=== PATIENT | male | born 1980 | race Caucasian/White ===

== ENCOUNTER 2023-12-16 10:07 | Outpatient (AMB) | payer OTHER, SELFPAY ==
[2023-12-16 10:17] VITALS: BP 110/60; PULSE 74; TEMP 36.8; O2SAT 98; BMI 25.4
--- NOTE | 2023-12-16 10:17 | AM.OFFWIN_ITS ---
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 Reports worse since onset over the last 2-3 weeks. 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 Plan .. Orders: Referrals Orthopedics Referral G56.03 - Carpal tunnel syndrome, bilateral upper limbs Patient Instructions: Buy [id number] carpal tunnel wrist splints to be worn at night, follow up with Orthopedics. If a nerve conduction study is needed before the referral can be completed, he will need to follow up with your primary care provider for this. Coding Level of Care Code Est Pt Level 3 (20426) Diagnoses Carpal tunnel syndrome, bilateral G56.03
== END 2023-12-16 10:50 | disposition home or self-care (01) ==
PROVIDERS: PCP Internal Medicine; Visit Provider Nurse Practitioner Family
DX: G56.03 Carpal tunnel syndrome, bilateral upper limbs (principal)
CPT/HCPCS: 99051; 99213

== ENCOUNTER 2024-01-03 08:08 | Outpatient (AMB) | payer OTHER, SELFPAY ==
--- NOTE | 2024-01-03 08:17 | AM.OFFWIN_ITS ---
Intake Vital Signs 01/03/24 08:18 Height 5 ft 10 in Weight 180 lb BMI 25.8 BP 126/84 Blood Pressure Location Lt brachial Position Sitting Pulse 56 Pulse Source Pulse Oximeter Temp 98.3 F Temp Source Oral Pulse Oximetry (%) 98 Oxygen Delivery Method Room Air Intake Visit Reasons: EP Pain on left arm Intake Note: pt c/o LT arm pain. Ongoing. Worsening Patient Tobacco Use Status: Current everyday Tobacco user Allergies No Known Allergies Allergy (Verified 01/03/24 08:18) Medication List - Last Reconciled 01/03/24 by Ramya Calderon MD atorvastatin 40 mg PO DAILY levothyroxine 75 mcg PO DAILY Do you need a note to return to daycare/school/sports/work: No HPI EP Pain on left arm HPI Details Patient is a 43-year-old gentleman who is suffering from carpal tunnel syndrome left hand He has appointment coming up with orthopedic end of this month Patient is having pain , he is taking nonsteroidal anti-inflammatory medication which is not helping 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 He has a splint on that he is wearing at night but not during the day Patient is complaining of feeling numbness and tingling in his fingers He had nerve conduction study that is how it was diagnosed He is requesting assistance with pain On examination he can move his fingers Motor sensory is intact vascular intact Wrist movement is full Plan: I would recommend that he wears splint during the day as well if possible I have sent prednisone 20 mg once a day for 7 days And gabapentin 100 mg to be taken at night Patient was notified that gabapentin we will cause drowsiness so he should only take it when he is sleeping. Follow-up with primary care [facility] Social History Patient Tobacco Use Status: Current everyday Tobacco user Review of Systems Const All systems reviewed & are unremarkable except as noted in HPI and below Physical Exam Vital Signs: Last Vital Signs Temp 98.3 F 01/03/24 08:18 Pulse 56 01/03/24 08:18 BP 126/84 01/03/24 08:18 Pulse Ox 98 01/03/24 08:18 Oxygen Delivery Method Room Air 01/03/24 08:18 BMI result Body Mass Index 25.8 Const General: no acute distress Orientation/consciousness: patient oriented x3 Eyes General: appearance normal, both eyes and all related structures Resp Effort & Inspection: normal respiratory effort and able to speak in complete sentences Neuro General: patient oriented x3 Extrem Other: He has a wrist splint on left hand, fingers are mobile, neuro and vascular exam within normal limit No pain with tapping on the wrist, wrist movement is intact Psych Mental Status: mental status grossly normal Assessment & Plan Assessment & Plan (1) Paresthesias in left hand: Code(s): R20.2 - Paresthesia of skin (2) Pain, joint, hand, left: Code(s): M25.542 - Pain in joints of left hand (3) Carpal tunnel syndrome, left: Code(s): G56.02 - Carpal tunnel syndrome, left upper limb Plan Patient is a 43-year-old gentleman who is suffering from carpal tunnel syndrome left hand He has appointment coming up with orthopedic end of this month Patient is having pain , he is taking nonsteroidal anti-inflammatory medication which is not helping 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 He has a splint on that he is wearing at night but not during the day Patient is complaining of feeling numbness and tingling in his fingers He had nerve conduction study that is how it was diagnosed He is requesting assistance with pain On examination he can move his fingers Motor sensory is intact vascular intact Wrist movement is full Plan: I would recommend that he wears splint during the day as well if possible I have sent prednisone 20 mg once a day for 7 days And gabapentin 100 mg to be taken at night Patient was notified that gabapentin we will cause drowsiness so he should only take it when he is sleeping. Follow-up with primary care Letter provided to be off work today and last night Medications: New gabapentin 100 mg PO BEDTIME 30 caps 0RF prednisone 20 mg PO DAILY 7 tabs 0RF 7 days Coding Level of Care Code Est Pt Level 4 (43687) Diagnoses Paresthesias in left hand R20.2 Pain, joint, hand, left M25.542 Carpal tunnel syndrome, left G56.02
[2024-01-03 08:18] VITALS: BP 126/84; PULSE 56; TEMP 36.8; O2SAT 98; BMI 25.8
== END 2024-01-03 09:05 | disposition home or self-care (01) ==
PROVIDERS: PCP Internal Medicine; Visit Provider Internal Medicine
DX: R20.2 Paresthesia of skin (principal); M25.542 Pain in joints of left hand; G56.02 Carpal tunnel syndrome, left upper limb
CPT/HCPCS: 99214

== ENCOUNTER 2024-01-24 08:51 | Outpatient (AMB) | payer OTHER, SELFPAY ==
--- NOTE | 2024-01-24 09:01 | A.OFFVIS_ITS ---
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 Left worse than right hand. EMG done roughly 20 years ago. He presents today with a brace his partner bought at home. 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 At night his symptoms are worse so he has to wake up and shake his hands to get some relief. He squeezes his wrist and is able to make a loud pop, he does this about every 10 minutes and says this helps blood flow go into his hand and relief his numbness and tingling for a short period time. His numbness and tingling is constant throughout the day in his 3rd, 4th and 5th digits of his B/L hands. Some days he is unable to open the door due to him not having sensation in his hands. He has difficulty with lifting, gripping, and grasping. When he holds objects sometimes he looks at his hands and notices the object is no longer in his hands. Denies recent injury. 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 The patient states that he has been trying to get by with conservative treatment measures since that time, but he feels that his symptoms have progressively worsened to the point where he feels he would like further treatment. The patient reports that he did have a nerve conduction study done approximately 10 years ago, but he can not recall the results. The patient reports that his symptoms are intermittent, but daily, and worse at night. The patient reports that the fingers affected are mainly the middle, ring, and small fingers of bilateral hands, and then the left is worse than the right. The patient reports that he regularly awakens from sleep to numb and painful hands, and he states that he has to ?pop? his wrists to get normal sensation back. Patient reports that he has been using an aupa-gol-[id number] thumb and wrist brace on the left hand daily for help with symptoms, with minimal to no relief. 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 No other acute complaints or concerns at this time. [facility] Social History (Updated 01/24/24 @ 09:13 by HANNA Meier) Alcohol intake: current Alcohol intake frequency: holidays/special occasions only Patient Tobacco Use Status: Current everyday Tobacco user Tobacco use type: Cigarette Substance Use Type: Marijuana Current occupational status: employed Current occupation: [employer] / right hand dominant Review of Systems Const All systems reviewed & are unremarkable except as noted in HPI and below Physical Exam Vital Signs: BMI result Body Mass Index 25.8 Extrem Other: Neuro: Normal sensation to the tips of all digits of bilateral hands at this time No thenar or intrinsic wasting. Good APB muscle firing and good finger cross. Of note, there is noted to be weakness of bilateral small fingers with adduction, and the patient is unable to hold the bilateral small fingers in full adduction when passively placed there. Vascular: Capillary refill brisk. ROM: Patient can make a fist and extend all their digits. Skin: No lacerations or abrasions noted. General: No ecchymosis. No erythema or evidence of infection. Assessment & Plan Assessment & Plan (1) Numbness and tingling in both hands: Code(s): R20.0 - Anesthesia of skin; R20.2 - Paresthesia of skin Category: Medical Plan 1. Bilateral hand numbness and tingling Ongoing for approximately 20 years Symptoms intermittent, but daily, worse at night Patient has no nerve conduction study on file At this time, new nerve conduction study is ordered to assess the health of the nerves of the bilateral upper extremities Patient is amenable to this plan Patient will follow-up after nerve conduction study for results review and discussion of further treatment options at that time. Orders: Orders NE electromyogram (EMG) Today R20.0 - Anesthesia of skin, R20.2 - Paresthesia of skin NE nerve conduction velocity Today R20.0 - Anesthesia of skin, R20.2 - Paresthesia of skin Coding Level of Care Code New Pt Level 3 (45587) Diagnoses Numbness and tingling in both hands R20.0; R20.2
[2024-01-24 09:02] VITALS: BMI 25.8
== END 2024-01-24 09:37 | disposition home or self-care (01) ==
PROVIDERS: PCP Internal Medicine
DX: R20.0 Anesthesia of skin (principal); R20.2 Paresthesia of skin
CPT/HCPCS: 99203

== ENCOUNTER → 2024-01-24 08:51 | Outpatient (BNVA) | payer OTHER, SELFPAY | PROVIDERS: PCP Internal Medicine | DX: R20.0 Anesthesia of skin (principal); R20.2 Paresthesia of skin | CPT/HCPCS: 99202 ==

== ENCOUNTER 2024-02-06 08:45 | Outpatient (AMB) | payer OTHER, SELFPAY ==
[2024-02-06 08:53] VITALS: BP 112/78; PULSE 62; TEMP 36.8; O2SAT 99; BMI 24.8
--- NOTE | 2024-02-06 08:53 | MHC.OFFWIV ---
Intake Vital Signs 02/06/24 08:53 Height 5 ft 10 in Weight 173 lb BMI 24.8 BP 112/78 Blood Pressure Location Lt brachial Position Sitting Pulse 62 Pulse Source Pulse Oximeter Temp 98.2 F Temp Source Oral Pulse Oximetry (%) 99 Oxygen Delivery Method Room Air Intake Visit Reasons: EP stomach Intake Note: pt c/o lower abdominal pain. Hurts worse after eating Patient Tobacco Use Status: Current everyday Tobacco user Allergies No Known Allergies Allergy (Verified 02/06/24 09:03) Do you need a note to return to daycare/school/sports/work: Yes HPI HPI Comments History of Present Illness Details 43 y/o male patient who presents to the walk in clinic with c/o Generalized Abdominal pain since Monday. Reports Pain as Cramping associated with bloating and burping. Denies Diarrhea but reports hard stools, he thinks he might have Constipation. Reports that Foods make the pain worse. Denies fevers but reports chills. Denies nausea or vomiting. Denies any dietary changes, but reports eating out alot. ON LICENSE OF [facility] Social History (Updated 01/24/24 @ 09:13 by HANNA Meier) Alcohol intake: current Alcohol intake frequency: holidays/special occasions only Patient Tobacco Use Status: Current everyday Tobacco user Tobacco use type: Cigarette Substance Use Type: Marijuana Current occupational status: employed Current occupation: [employer] / right hand dominant Review of Systems Const All systems reviewed & are unremarkable except as noted in HPI and below Physical Exam Vital Signs: Last Vital Signs Temp 98.2 F 02/06/24 08:53 Pulse 62 02/06/24 08:53 BP 112/78 02/06/24 08:53 Pulse Ox 99 02/06/24 08:53 Oxygen Delivery Method Room Air 02/06/24 08:53 BMI result Body Mass Index 24.8 Const General: cooperative and no acute distress Orientation/consciousness: patient oriented x3 GI Inspection: Yes normal to inspection Palpation (GI): Soft to palpation, not firm, Tenderness to palpation present (GI) in the epigastrum and in the LLQ, no guarding, not rigid, No hepatosplenomegaly present and Rebound tenderness present Auscultation: Hypoactive bowel sounds present Rectal Exam - Male: Yes deferred Neuro General: patient oriented x3, gait normal and moves all extremities Psych Speech and movement: Normal speech and movement present Assessment & Plan Assessment & Plan (1) Abdominal pain: Code(s): R10.9 - Unspecified abdominal pain Qualifiers: Abdominal location: generalized Qualified Code(s): R10.84 - Generalized abdominal pain Plan: DDX's: Constipation vs Appendicitis vs Gallstone vs GERD Advised to go to ED for further testing (CT Abdomen) and lab work Advised to push fluids Avoid Oily, greasy foods Medications: New metoclopramide HCl (Reglan) 10 mg PO Q6H PRN 30 tabs 0RF nausea and vomiting R10.84 - Generalized abdominal pain famotidine 20 mg PO BID 60 tabs 0RF R10.84 - Generalized abdominal pain Coding Level of Care Code Est Pt Level 3 (67835) Diagnoses Generalized abdominal pain R10.84 Abdominal location: generalized Time Spent (min) 15
== END 2024-02-06 09:36 | disposition home or self-care (01) ==
PROVIDERS: PCP Internal Medicine; Visit Provider Nurse Practitioner Family
DX: R10.84 Generalized abdominal pain (principal)
CPT/HCPCS: 99213

== ENCOUNTER 2024-03-01 10:18 | Outpatient (REF) | payer OTHER, SELFPAY ==
--- NOTE | 2024-03-01 10:21 | EMG_ITS ---
Chief complaint: Chronic hand numbness, worsening. Past EMG 20 years ago supposedly showed mild Carpal Tunnel Syndrome. No surgery yet. Denies neck pain. Reason for referral: Evaluate for Carpal Tunnel Syndrome Referred by: Alfredo AARON Procedure done: Bilateral upper extremities NCS/EMG Precautions and/or limitations: Difficulty tolerating needle EMG The limb temperature was monitored continuously and remained between 32-36 degrees C during the performance of the NCS. Nerve Conduction Studies Anti Sensory Summary Table ?Stim Site NR Onset (ms) Norm Onset (ms) Peak (ms) Norm Peak (ms) O-P Amp (?V) Norm O-P Amp Site1 Site2 Delta-0 (ms) Dist (cm) Jabari (m/s) Norm Jabari (m/s) Left Median Anti Sensory (2nd Digit) Wrist ? 3.4 4.4 <3.6 33.0 >10 Wrist 2nd Digit 3.4 14.0 41 Right Median Anti Sensory (2nd Digit) Wrist NR <3.6 >10 Wrist 2nd Digit 14.0 Right Radial Anti Sensory (Thumb) Forearm ? 1.6 2.3 <3.1 12.8 Forearm Thumb 1.6 0.0 Left Ulnar Anti Sensory (5th Digit) Wrist ? 2.2 3.5 <3.7 15.3 >15.0 Wrist 5th Digit 2.2 14.0 64 Right Ulnar Anti Sensory (5th Digit) Wrist ? 2.2 3.2 <3.7 34.7 >15.0 Wrist 5th Digit 2.2 14.0 64 Motor Summary Table ?Stim Site NR Onset (ms) Norm Onset (ms) O-P Amp (mV) Norm O-P Amp iAmp (mV) Amp (1st) (%) Site1 Site2 Delta-0 (ms) Dist (cm) Jabari (m/s) Norm Jabari (m/s) Left Median Motor (Abd Poll Brev) Wrist ? 5.2 <3.9 11.5 >4.5 14.0 100.0 Elbow Wrist 4.8 23.0 48 >45 Elbow ? 10.0 10.7 13.1 93.0 Right Median Motor (Abd Poll Brev) Wrist ? 7.4 <3.9 9.4 >4.5 11.4 100.0 Elbow Wrist 2.8 21.0 75 >45 Elbow ? 10.2 8.1 10.3 86.2 Left Ulnar Motor (Abd Dig Minimi) Wrist ? 2.9 <3.0 8.4 >5 13.0 100.0 B Elbow Wrist 4.4 22.0 50 >45 B Elbow ? 7.3 7.0 10.3 83.3 A Elbow B Elbow 1.8 10.0 56 >45 A Elbow ? 9.1 8.9 11.8 106.0 Right Ulnar Motor (Abd Dig Minimi) Wrist ? 3.0 <3.0 9.9 >5 12.8 100.0 B Elbow Wrist 4.1 22.0 54 >45 B Elbow ? 7.1 7.8 9.9 78.8 A Elbow B Elbow 1.8 10.0 56 >45 A Elbow ? 8.9 6.2 8.2 62.6 EMG ?Side Muscle Nerve Root Ins Act Fibs Psw Amp Dur Poly Recrt Int Pat Comment Right 1stDorInt Ulnar C8-T1 Nml Nml Nml Nml Nml 0 Nml Complete Right FlexCarRad Median C6-7 Nml Nml Nml Nml Nml 0 Nml Complete Right Biceps Musculocut C5-6 Nml Nml Nml Nml Nml 0 Nml Complete Right Triceps Radial C6-7-8 Nml Nml Nml Nml Nml 0 Nml Complete Right Deltoid Axillary C5-6 Nml Nml Nml Nml Nml 0 Nml Complete FINDINGS: Bilateral median motor nerves showed prolonged distal latency, normal amplitude and normal conduction velocity. Right median sensory nerve no response. Left median sensory nerve showed prolonged peak latency. All other nerves tested were within normal. Evidence of possible right Scooby Jeyson anastomosis was seen, which is a normal anatomic variant. Concentric needle EMG was performed in selected muscles of the right upper extremity. Study did not reveal signs of electric abnormalities as shown in the table above. IMPRESSION: 1. This is an abnormal study. 2. There is electrodiagnostic evidence for bilateral moderate-severe median neuropathy at the wrist, consistent with carpal tunnel syndrome. 3. There is no electrodiagnostic evidence for ulnar neuropathy, brachial plexopathy, or cervical radiculopathy. 4. Evidence of possible right Scooby Jeyson anastomosis was seen, which is a normal anatomic variant. Thank you for your kind referral. Steph Ardon MD, DENNISE Board Certified, [place] Board of Physical [employer] and Rehabilitation (ABPMR) Board Certified, [place] Board of Electrodiagnostic Medicine (ABEM) CODIN [phone] [facility]ITALCarl[facility]
== END 2024-03-01 10:19 | disposition home or self-care (01) ==
LOC: HO.NEURO 10:18
PROVIDERS: PCP Internal Medicine
DX: R20.0 Anesthesia of skin (principal); R20.2 Paresthesia of skin
CPT/HCPCS: 95886; 95911

== ENCOUNTER → 2024-03-01 10:21 | Outpatient (BNV) | payer OTHER, SELFPAY | PROVIDERS: PCP Internal Medicine; Visit Provider Physical Medicine & Rehabilitation | DX: G56.03 Carpal tunnel syndrome, bilateral upper limbs (principal) | CPT/HCPCS: 95886; 95911 ==

== ENCOUNTER 2024-03-15 16:14 | Outpatient (AMB) | payer OTHER, SELFPAY ==
[2024-03-15 16:16] VITALS: BP 110/70; PULSE 83; TEMP 36.5; O2SAT 97; BMI 24.7
--- NOTE | 2024-03-15 16:16 | AM.OFFWIN_ITS ---
Intake Vital Signs 03/15/24 16:16 Height 5 ft 10 in Weight 172 lb BMI 24.7 BP 110/70 Blood Pressure Location Lt brachial Position Sitting Pulse 83 Pulse Source Pulse Oximeter Temp 97.7 F Temp Source Oral Pulse Oximetry (%) 97 Oxygen Delivery Method Room Air Intake Visit Reasons: EP-lt ankle pain Intake Note: Pt is here today c/o Lt ankle pain: No injury noted started this morning Patient Tobacco Use Status: Current everyday Tobacco user Allergies No Known Allergies Allergy (Verified 03/15/24 16:18) HPI HPI Comments History of Present Illness Details Patient is a 43-year-old male who is complaining of left ankle pain since this morning. 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 He denies any injury to his left ankle. He states it hurts right up the back of the ankle it like a sharp shooting pain that radiates a little bit to each side but mostly just go straight up the back of his calf. He did not tried taking any medication or use ice before coming into the clinic. [facility] Social History (Updated 01/24/24 @ 09:13 by HANNA Meier) Alcohol intake: current Alcohol intake frequency: holidays/special occasions only Patient Tobacco Use Status: Current everyday Tobacco user Tobacco use type: Cigarette Substance Use Type: Marijuana Current occupational status: employed Current occupation: [employer] / right hand dominant Review of Systems Const All systems reviewed & are unremarkable except as noted in HPI and below Physical Exam Vital Signs: BMI result Body Mass Index 24.7 Const General: cooperative, healthy appearing, comfortable, no acute distress and well developed Orientation/consciousness: patient oriented x3 Limitations: no limitations HEENT Head: Yes normal to inspection Neck Neck: Yes normal visual inspection and Yes supple Neuro General: patient oriented x3 Extrem Left lower extremity: ankle ( ) Details: normal to inspection, tenderness Location: of the achilles tendon and normal ROM; no swelling, no warmth, no abrasions, no lacerations, no ecchymosis and achilles tendon exam normal and foot Details: normal capillary refill, normal to inspection, toes with normal ROM, no edema and vascular exam Details: normal capillary refill; no tenderness, no unusual warmth, no edema, no abrasions, no lacerations and no ecchymosis Assessment & Plan Assessment & Plan (1) Achilles tendinitis, left leg: Code(s): M76.62 - Achilles tendinitis, left leg Plan: Physical exam relatively unremarkable, just some tenderness along the Achilles but negative Khan's test. Recommended resting, using ice and Aleve ATC for the next few days, advised there are taping techniques you can use a few go to a physical therapist. If no improvement in his pain, he should follow up with his PCP. Plan See above Coding Level of Care Code New Pt Level 3 (45055) Diagnoses Achilles tendinitis, left leg M76.62
== END 2024-03-15 16:29 | disposition home or self-care (01) ==
PROVIDERS: PCP Internal Medicine; Visit Provider Physician Assistant
DX: M76.62 Achilles tendinitis, left leg (principal)

== ENCOUNTER → 2024-03-15 16:14 | Outpatient (BNVA) | payer OTHER, SELFPAY | PROVIDERS: PCP Internal Medicine; Visit Provider Physician Assistant | DX: M76.62 Achilles tendinitis, left leg (principal) | CPT/HCPCS: 99202 ==

== ENCOUNTER 2024-03-25 10:22 | Outpatient (AMB) | payer OTHER, SELFPAY ==
--- NOTE | 2024-03-25 10:31 | A.OFFVIS_ITS ---
Vital Signs 03/25/24 10:36 Height 5 ft 10 in Weight 170 lb BMI 24.4 Handedness Right Intake Visit Reasons: OV- B/L hands EMG review Intake Note: Nhan is a 43 year old right hand dominant male who presents today for an EMG review of his bilateral hands s/p EMG conducted on 03/01/24. The impression reads there is electrodiagnostic evidence for bilateral moderate-severe median neuropathy at the wrist, consistent with carpal tunnel syndrome and evidence of possible right Scooby Jeyson anastomosis was seen, which is a normal anatomic variant. He is open to discussing surgery, left greater than right. Accompanied by: Significant Other Allergies No Known Allergies Allergy (Verified 03/25/24 10:36) HPI HPI OV- B/L hands EMG review: Details: Patient is a 43-year-old male who presents for bilateral hand EMG review. The patient reports that he would like to explore any potential surgical intervention indicated based upon his EMG. Patient reports that his symptoms are intermittent, daily, and worse at night, and that they have worsened since previous visit. Patient states he would like to start with the left side 1st if any surgery is indicated. No other acute complaints or concerns at this time. [facility] Social History Alcohol intake: current Alcohol intake frequency: holidays/special occasions only Patient Tobacco Use Status: Current everyday Tobacco user Tobacco use type: Cigarette Substance Use Type: Marijuana Current occupational status: employed Current occupation: [employer] / right hand dominant Physical Exam Vital Signs: BMI result Body Mass Index 24.4 Extrem Other: Neuro: Normal sensation to the tips of all digits of bilateral hands at this time No thenar or intrinsic wasting. Good APB muscle firing and good finger cross. Of note, there is noted to be weakness of bilateral small fingers with adduction, and the patient is unable to hold the bilateral small fingers in full adduction when passively placed there. Vascular: Capillary refill brisk. ROM: Patient can make a fist and extend all their digits. Skin: No lacerations or abrasions noted. General: No ecchymosis. No erythema or evidence of infection. Results Reviewed Results Reviewed: IMPRESSION: 1. This is an abnormal study. 2. There is electrodiagnostic evidence for bilateral moderate-severe median neuropathy at the wrist, consistent with carpal tunnel syndrome. 3. There is no electrodiagnostic evidence for ulnar neuropathy, brachial plexopathy, or cervical radiculopathy. 4. Evidence of possible right Scooby Jeyson anastomosis was seen, which is a normal anatomic variant. Thank you for your kind referral. Steph Ardon MD, DENNISE 03/01/2024 Assessment & Plan Assessment & Plan (1) Carpal tunnel syndrome, bilateral: Code(s): G56.03 - Carpal tunnel syndrome, bilateral upper limbs Category: Medical Plan 1. Carpal tunnel syndrome, left Symptoms intermittent, daily, worse at night I educated the patient about the condition. I discussed both operative and nonoperative treatment options. The patient would like to proceed with surgery. Patient initially expresses significant apprehension with regards to having the procedure done under local anesthesia, but after education he states he would be better with this. The risks and benefits of operative treatment were discussed with the patient and the patient wishes to proceed with surgery. These risks include, but are not limited to, risk of damage to blood vessels, nerves, tendons, infection, recurrence, incomplete relief of preoperative symptoms, persistent pain, possible need for further surgery, and the risks associated with regional blocks and/or anesthesia. Plan is to take the patient to the operating room at some point in the next few weeks for the following procedures: 1. Left carpal tunnel release under local anesthesia All of the preoperative paperwork including the consent was discussed today. All of the patient's questions were answered in the clinic today. The patient understands that they will be in contact with our instructor adjunct surgical technician to discuss scheduling their procedure. Patient denies diabetes, blood thinners, asthma, heart issues, lung issues, kidney issues, or current smoking. 2. Carpal tunnel syndrome, right Symptoms intermittent, but daily, worse at night Patient would like to proceed with operative intervention of the left prior to any intervention on the right Patient is informed that if he is recovering well at his postoperative visit his left side, we can sign in the right upper surgery if he desires to do so Patient understands this in his amenable to this plan Of note, the patient states that he needs to schedule surgery in August, as he will not be eligible for FMLA at his new job until that time, so he will need a preop visit that we will be more than 3 months from now that he will have surgery Coding Level of Care Code Est Pt Level 4 (11059) Diagnoses Carpal tunnel syndrome, bilateral G56.03
[2024-03-25 10:36] VITALS: BMI 24.4
== END 2024-03-25 11:16 | disposition home or self-care (01) ==
PROVIDERS: PCP Internal Medicine
DX: G56.03 Carpal tunnel syndrome, bilateral upper limbs (principal)
CPT/HCPCS: 99214

== ENCOUNTER → 2024-03-25 10:22 | Outpatient (BNVA) | payer OTHER, SELFPAY | PROVIDERS: PCP Internal Medicine | DX: G56.03 Carpal tunnel syndrome, bilateral upper limbs (principal) | CPT/HCPCS: 99212 ==

== ENCOUNTER 2024-06-13 08:35 | Outpatient (AMB) | payer OTHER, SELFPAY ==
--- NOTE | 2024-06-13 08:43 | MHC.OFFWIV ---
Intake Vital Signs 06/13/24 08:45 Height 5 ft 10 in Weight 164 lb BMI 23.5 BP 112/74 Blood Pressure Location Lt brachial Position Sitting Pulse 94 Pulse Source Pulse Oximeter Temp 98.4 F Temp Source Oral Pulse Oximetry (%) 97 Oxygen Delivery Method Room Air Intake Visit Reasons: EP stomach pain, nauseous,headaches Intake Note: Patient here for stomach pain, nausea and headaches that started last night. Patient Tobacco Use Status: Current everyday Tobacco user Allergies No Known Allergies Allergy (Verified 06/13/24 08:47) Do you need a note to return to daycare/school/sports/work: Yes HPI HPI Comments History of Present Illness Details History of Present Illness - The patient is a 43-year-old male presenting with gastrointestinal symptoms including diarrhea and nausea. - These symptoms manifested last night with a sudden onset of dark-colored diarrhea that was reported as neither black nor bloody. - Over the course of the night, the patient experienced a worsening of stomach pain, along with persistent nausea, and the absence of vomiting. - No fever has been reported, although the patient developed a headache upon waking at 2:00 AM. He addressed the headache with Tylenol. - Past medical history is notable for nephrolithiasis, with no known prior episodes of gastrointestinal bleeding, peptic ulcers, or liver disease. Physical Exam General: Cooperative, healthy appearing, comfortable, no acute distress and well developed Orientation: Patient oriented x3 Limitations: No limitations Head: Normal to inspection Ears: Hearing grossly normal bilaterally Nose: Normal external nose present Face and sinus: Normal facial exam Eyes: Appearance normal, both eyes and all related structures Neck: Normal visual inspection and Yes full ROM Respiratory: Normal respiratory effort and able to speak in complete sentences. Clear to auscultation bilaterally Cardiovascular: Regular rate and rhythm. Normal S1 and S2 GI: soft, normal bs, no TTP Skin: No rashes or lesions noted Neuro: Patient oriented x3 Extremities: Normal to inspection [facility] Social History Alcohol intake: current Alcohol intake frequency: holidays/special occasions only Patient Tobacco Use Status: Current everyday Tobacco user Tobacco use type: Cigarette Substance Use Type: Marijuana Current occupational status: employed Current occupation: [employer] / right hand dominant Review of Systems Const All systems reviewed & are unremarkable except as noted in HPI and below Physical Exam Vital Signs: Last Vital Signs Temp 98.4 F 06/13/24 08:45 Pulse 94 06/13/24 08:45 BP 112/74 06/13/24 08:45 Pulse Ox 97 06/13/24 08:45 Oxygen Delivery Method Room Air 06/13/24 08:45 BMI result Body Mass Index 23.5 Assessment & Plan Assessment & Plan (1) Viral gastroenteritis: Code(s): A08.4 - Viral intestinal infection, unspecified Plan: The working diagnosis for this patient is acute gastroenteritis, likely viral, such as norovirus. I have prescribed ondansetron Zofran for nausea management, which should be taken sublingually as needed. The patient is advised to adhere to the BRAT diet and to stay hydrated using low-sugar electrolyte solutions. Careful monitoring of stool characteristics, bloody or black, is essential due to potential GI bleeding risks as pt noted one dark stool. The patient should observe for changes in symptoms and return for further evaluation or go to the ED, if necessary. Patient was informed and verbally consented to the use of an ambient scribe for clinic note documentation during this visit. Medications: New ondansetron 4 mg PO Q8H PRN 10 tabs 0RF nausea and vomiting Coding Level of Care Code New Pt Level 3 (56726) Diagnoses Viral gastroenteritis A08.4
[2024-06-13 08:45] VITALS: BP 112/74; PULSE 94; TEMP 36.9; O2SAT 97; BMI 23.5
== END 2024-06-13 09:39 | disposition home or self-care (01) ==
PROVIDERS: PCP Internal Medicine; Visit Provider Physician Assistant
DX: A08.4 Viral intestinal infection, unspecified (principal)

== ENCOUNTER → 2024-06-13 08:35 | Outpatient (BNVA) | payer OTHER, SELFPAY | PROVIDERS: PCP Internal Medicine; Visit Provider Physician Assistant | DX: A08.4 Viral intestinal infection, unspecified (principal) | CPT/HCPCS: 99212 ==

== ENCOUNTER 2024-06-18 09:39 | Outpatient (AMB) | payer OTHER, SELFPAY ==
--- NOTE | 2024-06-18 09:39 | AM.OFFWIN_ITS ---
Intake Vital Signs 06/18/24 09:41 Height 5 ft 10 in Weight 166 lb 4 oz BMI 23.9 BP 112/78 Blood Pressure Location Lt brachial Position Sitting Pulse 77 Pulse Source Pulse Oximeter Temp 98.0 F Temp Source Oral Pulse Oximetry (%) 98 Oxygen Delivery Method Room Air Intake Visit Reasons: EP-work clearance from visit 06/13/24 Intake Note: Pt presents to the office today for a work clearance from his 06/13/24 visit for viral gastroenteritis. Patient Tobacco Use Status: Current everyday Tobacco user Allergies No Known Allergies Allergy (Verified 06/18/24 09:39) HPI HPI Comments History of Present Illness Details History of Present Illness - The patient is a 43-year-old male pres enting with a follow-up for gastroenteritis. - Symptoms of stomach pain, headaches, a nd diarrhea began last week. - Headaches resolved two nights ago, whi le diarrhea cleared by the third day. - The patient no longer experiences stom ach pain, diarrhea, or headaches. - The patient's family members are now e xperiencing the same symptoms. - The patient plans to resume work on [employer] 2024. Physical Exam General: Cooperative, healthy appearing, comfortable, no acute distress and well developed Orientation: Patient oriented x3 Limitations: No limitations Head: Normal to inspection Ears: Hearing grossly normal bilaterally Nose: Normal external nose present Face and sinus: Normal facial exam Eyes: Appearance normal, both eyes and all related structures Neck: Normal visual inspection and Yes full ROM Respiratory: Normal respiratory effort and able to speak in complete sentences. Skin: No rashes or lesions noted Neuro: Patient oriented x3 Extremities: Normal to inspection [facility] Social History Alcohol intake: current Alcohol intake frequency: holidays/special occasions only Patient Tobacco Use Status: Current everyday Tobacco user Tobacco use type: Cigarette Substance Use Type: Marijuana Current occupational status: employed Current occupation: [employer] / right hand dominant Review of Systems Const All systems reviewed & are unremarkable except as noted in HPI and below Physical Exam Vital Signs: Last Vital Signs Temp 98.0 F 06/18/24 09:41 Pulse 77 06/18/24 09:41 BP 112/78 06/18/24 09:41 Pulse Ox 98 06/18/24 09:41 Oxygen Delivery Method Room Air 06/18/24 09:41 BMI result Body Mass Index 23.9 Assessment & Plan Assessment & Plan (1) Viral gastroenteritis: Code(s): A08.4 - Viral intestinal infection, unspecified Plan: Plan The primary focus was on the follow-up for gastroenteritis. The patient's symptoms have significantly improved, with headaches and diarrhea resolved. No additional testing is required at this time. The patient was advised to maintain hygiene measures to reduce transmission to others. The patient is prepared to return to work on June 19, 2024, and will seek further care if symptoms reappear. Work note written to cover him 06/13-06/18. Patient was informed and verbally consented to the use of an ambient scribe for clinic note documentation during this visit. Coding Level of Care Code New Pt Level 3 (14393) Diagnoses Viral gastroenteritis A08.4
[2024-06-18 09:41] VITALS: BP 112/78; PULSE 77; TEMP 36.7; O2SAT 98; BMI 23.9
--- OUTSIDE RECORDS SUMMARY | 2024-06-18 10:34 | XMS_ITS | Clinical Summary ---
Author Organization [facility] [place] [address] Care Team Providers Care Wad Blanking Press Adjuster Name Role Phone Franco Ocampo MD Primary Care Provider [phone] Surgical History Surgery Date Site/Laterality Comments OTHER SURGICAL HISTORY PROCEDURE: RECONSTRUCT/TUBULARIZE URETHRA OTHER SURGICAL HISTORY PROCEDURE: HISTORICAL EAR SURGERY Medical History Medical History Date Comments Psoriasis 08/05/2016 DX:Psoriasis Kidney stone 08/05/2016 DX:Kidney stone Family History Relation Name Status Comments Brother 1 Alive Brother 2 Alive Brother 3 Alive Father Alive Mother Alive Sister Alive Social History Tobacco Use Types Packs/Day Years Used Date Smoking Tobacco: Every Day Cigarettes Smokeless Tobacco: Never Alcohol Use Standard Drinks/Week Comments No 0 (1 standard drink = 0.6 oz pur e alcohol) Sex and Gender Information Value Date Recorded Sex Assigned at Not on file Gender Identity Not on file Sexual Orientation Not on file Obstetrics History Last Filed Vital Signs Vital Sign Reading Time Taken Comments Blood Pressure 107/77 09/29/2023 9:28 AM EDT Pulse 70 09/29/2023 9:28 AM EDT Temperature - - Respiratory Rate - - Oxygen Saturation - - Inhaled Oxygen Concentration - - Weight 84.9 kg (187 lb 3.2 oz) 09/29/2023 9:28 A M EDT Height 175.3 cm (5' 9 ) 09/29/2023 9:28 AM EDT Body Mass Index 27.64 09/29/2023 9:28 AM EDT Plan of Treatment Health Maintenance Due Date Last Done Comments Pneumococcal Vaccine: Pediatrics (0 to 5 Years) and At-Risk Patients (6 to 64 Years) (1 of 2 - PCV) 1986 Hepatitis B Vaccines (1 of 3 - 19+ 3-dose series) 08/14/1999 DTaP,Tdap,and Td Vaccines (2 - Td or Tdap) 08/28/2018 08/28/2008 Depression Screening 04/30/2022 HIV Screening 04/30/2022 Hepatitis C Screening 04/30/2022 Social Influencers of Health Screening 04/30/2022 COVID-19 Vaccine (3 - 2023-2 5 season) 2024 05/05/2021, 04/14/2021 Influenza Vaccine (#1) 2024 Cholesterol Screening (Lipid Panel) 09/28/2028 09/29/2023 HIB Vaccines Aged Out No longer eligi ble based on patient's age to complete this topic HPV Vaccines Aged Out No longer eligi ble based on patient's age to complete this topic Hepatitis A Vaccines Aged Out No long er eligible based on patient's age to complete this topic IPV Vaccines Aged Out No longer eligi ble based on patient's age to complete this topic MMR Vaccines Aged Out No longer eligi ble based on patient's age to complete this topic Meningococcal ACWY Vaccine Aged Out N o longer eligible based on patient's age to complete this topic RSV Immunization Patients Under 20 months Aged Out No longer eligible b ased on patient's age to complete this topic Varicella Vaccines Aged Out No longer eligible based on patient's age to complete this topic Care Teams Wad Blanking Press Adjuster Relationship Specialty Start Date End Date Franco Ocampo MD PCP - General 08/14/08
== END 2024-06-18 10:21 | disposition home or self-care (01) ==
PROVIDERS: PCP Internal Medicine; Visit Provider Physician Assistant
DX: A08.4 Viral intestinal infection, unspecified (principal)

== ENCOUNTER → 2024-06-18 09:39 | Outpatient (BNVA) | payer OTHER, SELFPAY | PROVIDERS: PCP Internal Medicine; Visit Provider Physician Assistant | DX: A08.4 Viral intestinal infection, unspecified (principal) | CPT/HCPCS: 99212 ==